=== PATIENT | female | born 1970 | race Caucasian/White ===

== ENCOUNTER → 2016-12-01 | Outpatient (REF) | payer BC ==
[~2016-12-01] MED LIST: COLA100C2; PERC5TAB8
== END ==
LOC: M LAB REF 15:33
PROVIDERS: ATTEND Internal Medicine Endocrinology, Diabetes & Metabolism
DX: D34 Benign neoplasm of thyroid gland (principal)

== ENCOUNTER → 2019-06-27 | Outpatient (REF) | payer OTHER ==
[2019-07-01 15:06] LABS: HPV HYBRID CAPTURE II Negative (Negative)
== END ==
LOC: M LAB LCGH 13:19
PROVIDERS: ATTEND Nurse Practitioner Adult Health
DX: Z12.4 Encounter for screening for malignant neoplasm of cervix (principal)

== ENCOUNTER → 2020-08-01 | Outpatient (CLI) | payer OTHER ==
[~2020-08-01] MED LIST changes: +ISOVUE-370 76% 100ML VIAL As Ordered ONE
--- NOTE | 2020-08-01 17:10 | REPVR ---
PROCEDURE INFORMATION: Exam: CT Neck With Contrast Exam date and time: 08/01/2020 4:18 PM Age: 50 years old Clinical indication: Mass, lump, or swelling in neck; Additional info: RT upper neck swelling ? h/o thyroid CA TECHNIQUE: Imaging protocol: Computed tomography images of the neck with intravenous contrast. Radiation optimization: All CT scans at this facility use at least one of these dose optimization techniques: automated exposure control; mA and/or kV adjustment per patient size (includes targeted exams where dose is matched to clinical indication); or iterative reconstruction. Contrast material: ISOVUE 370; Contrast volume: 75 ml; Contrast route: INTRAVENOUS (IV); COMPARISON: No relevant prior studies available. FINDINGS: Orbital cavity: Symmetric orbits. Mastoid air cells: Clear mastoid air cells. Paranasal sinuses: Clear paranasal sinuses. Submandibular/Parotid glands: Normal appearing parotid glands. Thyroid: The right lobe of the thyroid has been previously removed. Lymph nodes: There is a 1 cm lymph node at the right carotid bifurcation. There are small lymph nodes at the left carotid bifurcation. There are small lymph nodes posterior triangle region bilaterally. Trachea: Visualized trachea is unremarkable. Lungs: Clear apical portions of the lung. Bones/joints: There is some reversal of the normal cervical curve with anterior osteophyte formation mid cervical region. Vasculature: There is opacification of the vertebral arteries however the right is much smaller than the left. Soft tissues: Unremarkable. No significant soft tissue swelling. IMPRESSION: Post removal of the right lobe of the thyroid with no evidence recurrence or mass. Electronically signed by: Aren Murphy On 08/01/2020 17:09:52 PM
== END ==
LOC: M RAD 15:44
PROVIDERS: ATTEND Otolaryngology
DX: R22.1 Localized swelling, mass and lump, neck (principal); E89.0 Postprocedural hypothyroidism
CPT/HCPCS: 70491; Q9967

== ENCOUNTER → 2021-03-19 | Outpatient (CLI) | payer OTHER ==
[~2021-03-19] MED LIST changes: -ISOVUE-370 76% 100ML VIAL As Ordered ONE; +LASI20TA3 PO; +LEVO75TA4 PO
--- NOTE | 2021-03-19 15:26 | REP ---
INDICATION: MASS, LUMP NECK COMPARISON: 11/05/2020, 05/29/2020 TECHNIQUE: Orr scale and color evaluation of the thyroid gland using the linear high frequency transducer. FINDINGS: Patient is again noted to be status post right thyroid lobectomy and the right thyroid bed is relatively normal. A single normal appearing lymph node is identified with central fatty hilum and measures 14 x 4 x 10 mm. Left thyroid lobe measures 4.1 x 1.5 x 1.1 cm and includes a stable 2 mm hypoechoic nodule with small central calcification. Two left-sided normal appearing lymph nodes are identified measuring 12 x 4 x 7 mm and 7 x 6 x 6 mm. IMPRESSION: 1. Stable appearance of the thyroid gland. 2. Few bilateral lymph nodes similar to prior examination. <Electronically signed by Tray Beard > 03/19/21 1524
== END ==
LOC: M RAD 14:57
PROVIDERS: ATTEND Otolaryngology
DX: R22.1 Localized swelling, mass and lump, neck (principal); E89.0 Postprocedural hypothyroidism

== ENCOUNTER → 2021-03-24 | Outpatient (CLI) | payer OTHER ==
[~2021-03-24] MED LIST changes: +LIDOCAINE 1% MDV 20ML VIAL As Ordered ONE; +SODIUM BICARBONATE 8.4% INJ 50MEQ 50 ML VIAL As Ordered ONE
[2021-03-24 09:49] VITALS: BP 148/62
--- NOTE | 2021-03-24 18:05 | REP ---
INDICATION: SENAIT NECK NODULES. COMPARISON: Ultrasound dated 03/19/2021. TECHNIQUE: The procedure was performed by She Baeza [facility], under the direct supervision of Dr. Orr. The risks and benefits of the procedure were explained to the patient and an informed consent was obtained both verbally and written. Directly prior to the start of the procedure a formal time-out was completed in the procedure room. FINDINGS: Using ultrasound guidance the lymph node's of interest were localized bilaterally. The skin was prepped and draped in a sterile fashion. Four mL of buffered lidocaine was used as a local anesthetic. Using ultrasound guidance 8 fine needle aspirations were obtained using 25 gauge needles of the right cervical lymph node. Four specimens were sent to our lab here, and remaining 4 were sent out in RPMI solution, for further testing. The patient was repositioned and approximately 6 mL of buffered lidocaine was used as a local anesthetic on the left. Using ultrasound guidance a 8 fine needle aspirations were obtained using 25 gauge needles of the left cervical lymph node. The patient tolerated the procedure well and there were no immediate complications. After the appropriate amount of monitored convalescence the patient was discharged from the department. IMPRESSION: 1. Ultrasound-guided bilateral lymph node fine needle aspiration. <Electronically signed by She Baeza > 03/24/21 1616 <Electronically signed by Poncho Orr > 03/24/21 1809
== END ==
LOC: M IRPRO 08:28
PROVIDERS: ATTEND Otolaryngology
DX: R22.1 Localized swelling, mass and lump, neck (principal)

== ENCOUNTER → 2021-11-05 | Outpatient (CLI) | payer OTHER ==
[~2021-11-05] MED LIST changes: -LIDOCAINE 1% MDV 20ML VIAL As Ordered ONE; -SODIUM BICARBONATE 8.4% INJ 50MEQ 50 ML VIAL As Ordered ONE
== END ==
LOC: M RAD 11:05
PROVIDERS: ATTEND Otolaryngology
DX: R22.1 Localized swelling, mass and lump, neck (principal)

== ENCOUNTER → 2022-04-27 | Outpatient (CLI) | payer OTHER | LOC: M RAD 10:40 | PROVIDERS: ATTEND Otolaryngology | DX: R22.1 Localized swelling, mass and lump, neck (principal) ==

== ENCOUNTER → 2023-04-26 | Outpatient (CLI) | payer OTHER | LOC: M RAD 10:26 | PROVIDERS: ATTEND Otolaryngology | DX: E04.1 Nontoxic single thyroid nodule (principal) ==

== ENCOUNTER → 2024-05-09 | Outpatient (CLI) | payer OTHER | LOC: M RAD 10:22 | PROVIDERS: ATTEND Otolaryngology | DX: E04.2 Nontoxic multinodular goiter (principal); E89.0 Postprocedural hypothyroidism ==

== ENCOUNTER → 2024-07-28 | Outpatient (CLI) | payer OTHER ==
[2024-07-28 17:25] LABS: APPEARANCE, URINE HAZY (CLEAR); BACTERIA, URINE AUTO 3+ (NEGATIVE); BILIRUBIN, URINE AUTO NEGATIVE (NEGATIVE); BLOOD, URINE BLOOD 1+ (NEGATIVE); COLOR, URINE YELLOW (YELLOW); GLUCOSE, URINE (UA) AUTO NEGATIVE (NEGATIVE); KETONE, URINE AUTO TRACE mg/dL (NEGATIVE); LEUKOCYTE ESTERASE, URINE AUTO NEGATIVE (NEGATIVE); MUCUS, URINE SMALL (NEGATIVE); NITRITE, URINE AUTO POSITIVE (NEGATIVE); PROTEIN, URINE AUTO NEGATIVE (NEGATIVE); RBC, URINE AUTO 2 /HPF (0-3); SPECIFIC GRAVITY URINE AUTO 1.028 (1.002-1.035); SQUAMOUS EPITHELIAL CELL UR AU 0 /HPF (0-6); WBC, URINE AUTO 2 /HPF (0-3)
[2024-07-28 17:35] LABS: BASO % 0.7 % (0.0-1.0); EOS # 0.2 10^3/uL (0.0-0.5); EOS % 4.3 % (0.0-3.0); HEMATOCRIT 37.2 % (36.0-47.0); HEMOGLOBIN 11.8 g/dl (12.0-15.5); LYMPH # 1.2 10^3/uL (1.5-5.0); LYMPH % 21.5 % (24.0-44.0); MEAN CORPUSCULAR HEMOGLOBIN 29.1 pg (27.0-33.0); MEAN CORPUSCULAR HGB CONC 31.7 g/dl (32.0-36.5); MEAN CORPUSCULAR VOLUME 91.9 fl (80.0-96.0); MONO # 0.5 10^3/uL (0.0-0.8); MONO % 9.6 % (2.0-8.0); NEUTROPHILS # 3.4 10^3/uL (1.5-8.5); NEUTROPHILS % 63.7 % (36.0-66.0); PLATELET COUNT, AUTOMATED 548 10^3/uL (150-450); RED BLOOD COUNT 4.05 10^6/uL (4.00-5.40); WHITE BLOOD COUNT 5.4 10^3/uL (4.0-10.0)
[2024-07-28 17:42] LABS: TOTAL PROTEIN,RANDOM URINE 11.7 MG/DL (0.0-14.0)
[2024-07-28 17:45] LABS: C REACTIVE PROTEIN QUANTITATIV 3.6 MG/DL (<1.0)
[2024-07-28 17:47] LABS: COMPLEMENT C3 186.8 MG/DL (90.0-170.0); COMPLEMENT C4 46.1 MG/DL (12-36); CREATININE,RANDOM URINE 155.9 MG/DL
[2024-07-28 17:50] LABS: ERYTHROCYTE SEDIMENTATION RATE 60 mm/hr (0-30)
[2024-07-28 17:51] LABS: TOTAL 25(OH) VITAMIN D 53.4 NG/ML (20.0-100.0)
[2024-08-01 14:53] LABS: Hexagonal Phase Phospholipid Positive (Negative); dRVVT Confirm Negative (Negative)
[2024-08-01 15:22] LABS: LUPUS THROMBIN CLOTTING TIME 16 sec (13-19); PTT-LA 47 sec (<=40); dRVVT 48 sec (<=45)
== END ==
LOC: M RAD 16:27
PROVIDERS: ATTEND Internal Medicine
DX: M25.50 Pain in unspecified joint (principal); M25.40 Effusion, unspecified joint; S62.101D Fracture of unspecified carpal bone, right wrist, subsequent encounter for fracture with routine healing; R76.8 Other specified abnormal immunological findings in serum; M19.011 Primary osteoarthritis, right shoulder; M19.012 Primary osteoarthritis, left shoulder; M47.812 Spondylosis without myelopathy or radiculopathy, cervical region

== ENCOUNTER → 2024-08-01 | Outpatient (CLI) | payer OTHER | LOC: M WHC 08:25 | PROVIDERS: ATTEND Internal Medicine | DX: S62.101A Fracture of unspecified carpal bone, right wrist, initial encounter for closed fracture (principal); X58.XXXA Exposure to other specified factors, initial encounter; Y92.9 Unspecified place or not applicable; Y93.9 Activity, unspecified; Y99.9 Unspecified external cause status ==

== ENCOUNTER → 2024-10-23 | Outpatient (CLI) | payer OTHER ==
[2024-10-23 12:38] LABS: BLOOD UREA NITROGEN 24 MG/DL (9-23); CARBON DIOXIDE LEVEL 29 MMOL/L (20-31); CHLORIDE LEVEL 105 MMOL/L (98-107); CREATININE FOR GFR 0.57 MG/DL (0.55-1.30); GLOMERULAR FILTRATION RATE > 60.0 (>51); GLUCOSE, FASTING 103 MG/DL (60-100); POTASSIUM SERUM 4.4 MMOL/L (3.5-5.1); SODIUM LEVEL 142 MMOL/L (136-145)
== END ==
LOC: M EKG 11:17
PROVIDERS: ATTEND Registered Nurse
DX: Z01.818 Encounter for other preprocedural examination (principal)

== ENCOUNTER → 2024-11-23 | Outpatient (CLI) | payer OTHER | LOC: M RAD 10:01 | PROVIDERS: ATTEND Obstetrics & Gynecology | DX: N95.1 Menopausal and female climacteric states (principal); M46.1 Sacroiliitis, not elsewhere classified; N88.8 Other specified noninflammatory disorders of cervix uteri ==

== ENCOUNTER → 2025-04-19 | Outpatient (CLI) | payer OTHER ==
[2025-04-25 09:05] LABS: PTT-LA 51 sec (<=40)
== END ==
LOC: M RAD 08:39
PROVIDERS: ATTEND Internal Medicine
DX: R76.0 Raised antibody titer (principal); M24.811 Other specific joint derangements of right shoulder, not elsewhere classified; M24.812 Other specific joint derangements of left shoulder, not elsewhere classified; M79.89 Other specified soft tissue disorders; M19.011 Primary osteoarthritis, right shoulder; M75.01 Adhesive capsulitis of right shoulder; M71.21 Synovial cyst of popliteal space [Baker], right knee; M71.22 Synovial cyst of popliteal space [Baker], left knee; M75.02 Adhesive capsulitis of left shoulder

== ENCOUNTER → 2025-09-05 | Outpatient (CLI) | payer OTHER | LOC: M RAD 13:32 | PROVIDERS: ATTEND Otolaryngology | DX: E04.1 Nontoxic single thyroid nodule (principal) ==